=== PATIENT | female | born 1960 | race African-American/Black ===

== ENCOUNTER 2024-10-15 17:07 | Emergency (ER) | payer OTHER ==
[2024-10-15] MEDS ORDERED: Methocarbamol 500 MG TAB ONE (19:23)
[2024-10-15] MEDS ORDERED: Acetaminophen 500 MG TAB ONE (19:23)
[2024-10-15] MEDS ORDERED: Lidocaine 4% Patch ONE (19:24)
== END 2024-10-15 20:22 | disposition home or self-care (01) ==
LOC: CSHERS 17:07
DX: S23.3XXA Sprain of ligaments of thoracic spine, initial encounter (principal); S13.4XXA Sprain of ligaments of cervical spine, initial encounter; S80.02XA Contusion of left knee, initial encounter; I10 Essential (primary) hypertension; F17.210 Nicotine dependence, cigarettes, uncomplicated; V49.9XXA Car occupant (driver) (passenger) injured in unspecified traffic accident, initial encounter
CPT/HCPCS: 99284